=== PATIENT | male | born 1995 | race Caucasian/White ===

== ENCOUNTER 2019-06-16 09:52 | Emergency (ER) | payer SELFPAY ==
[2019-06-16] MEDS ORDERED: CEFTRIAXONE INJ 250 MG VIAL IM ONE (12:20)
[2019-06-16] MEDS ORDERED: AZITHROMYCIN 250 MG TABLET PO ONE (12:20)
--- NOTE | 2019-06-16 12:24 | ER Document Report ---
ED General - General Chief Complaint: Skin Problem Stated Complaint: SORE ON LIP Time Seen by Provider: 06/16/19 10:37 Primary Care Provider: HILARY CH FNP-C [COMMUNITY BASED STAFF] - Follow up in 1 week TRAVEL OUTSIDE OF THE U.S. IN LAST 30 DAYS: No - HPI Notes: 24-year-old male to the emergency department with complaints of a cold sore to his left side of the upper lip. He states that it started 2 days ago. He states he would like to be tested to see if it is a genital version of a cold sore. He does have a history of cold sores. He states that he would also like to be tested for STDs. He states that he is been having unprotected sex. He practices MSM. He denies any current symptoms such as testicular pain, penile discharge, dysuria, genital sores. He states that he is currently homeless and has been so for the past 3 nights. - Related Data Allergies/Adverse Reactions: No Known Allergies Allergy (Verified 01/18/15 11:23) Past Medical History - General Information source: Patient - Social History Smoking Status: Current Every Day Smoker Chew tobacco use (# tins/day): No Frequency of alcohol use: Occasional Drug Abuse: None Family History: Reviewed & Not Pertinent, Other - unknown Patient has suicidal ideation: No Patient has homicidal ideation: No - Immunizations Hx Diphtheria, Pertussis, Tetanus Vaccination: Yes Review of Systems - Review of Systems Constitutional: denies: Chills, Fever EENT: Other - sore to the left upper lip. denies: Ear pain, Throat pain Cardiovascular: denies: Chest pain, Palpitations, Heart racing, Syncope, Dizziness, Lightheaded Respiratory: denies: Cough, Hurts to breathe, Short of breath Gastrointestinal: denies: Abdominal pain, Diarrhea, Nausea, Vomiting Genitourinary: denies: Burning, Dysuria, Frequency, Flank pain, Hematuria, Incontinence, Urgency, Retention Male Genitourinary: denies: Erectile dysfunction, Testicular pain, Penile discharge Musculoskeletal: No symptoms reported Skin: No symptoms reported Neurological/Psychological: No symptoms reported -: Yes All other systems reviewed and negative Physical Exam - Vital signs Vitals: Temp Pulse Resp BP Pulse Ox 98.0 F 95 14 110/78 97 06/16/19 09:57 06/16/19 09:57 06/16/19 09:57 06/16/19 09:57 06/16/19 09:57 Interpretation: Normal - General General appearance: Appears well, Alert - HEENT Head: Normocephalic, Atraumatic Eyes: Normal Pupils: PERRL Ears: Normal External canal: Normal Tympanic membrane: Normal Sinus: Normal Nasal: Normal Mouth/Lips: Other - there is a small vesicular round ulceration to the top left lip. 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 Pharynx: Normal. No: Potential airway comprom. Neck: Normal, Supple. No: Lymphadenopathy, Meningismus - Respiratory Respiratory status: No respiratory distress Chest status: Nontender Breath sounds: Normal Chest palpation: Normal - Cardiovascular Rhythm: Regular Heart sounds: Normal auscultation Murmur: No - Abdominal Inspection: Normal Distension: No distension Bowel sounds: Normal Tenderness: Nontender Organomegaly: No organomegaly - Neurological Neuro grossly intact: Yes Cognition: Normal Orientation: AAOx4 Kuldeep Coma Scale Eye Opening: Spontaneous Kuldeep Coma Scale Verbal: Oriented Kuldeep Coma Scale Motor: Obeys Commands Kuldeep Coma Scale Total: 15 Speech: Normal Cranial nerves: Normal Cerebellar coordination: Normal Motor strength normal: LUE, RUE, LLE, RLE Additional motor exam normals: Equal beater tender. No: Pronator drift Sensory: Normal - Psychological Associated symptoms: Normal affect, Normal mood - Skin Skin Temperature: Warm Skin Moisture: Dry Skin Color: Normal Course - Re-evaluation Re-evalutation: Impression: Cold sore to the lip. Patient also would like empiric treatment for GC and Chlamydia. Will give while awaiting results. Patient denies any symptoms. Will send to health department for HIV testing. Patient agrees with the plan. - Vital Signs Vital signs: Temp Pulse Resp BP Pulse Ox 97.8 F 92 16 112/84 98 06/16/19 13:06 06/16/19 13:06 06/16/19 13:06 06/16/19 13:06 06/16/19 13:06 Discharge - Discharge Clinical Impression: Cold sore, Screening for STDs (sexually transmitted diseases) Condition: Stable Disposition: HOME, SELF-CARE Additional Instructions: Use topical medicine for relief of cold sore. Follow up with the health department for HIV testing. Use protection during sex. [facility] [place] [address] [place] [id number] Prescriptions: Docosanol [Abreva] 1 applic TP ASDIR PRN #2 cream.gm. PRN Reason: Referrals: HILARY CH FNP-C [COMMUNITY BASED STAFF] - Follow up in 1 week
[2019-06-16] MEDS ORDERED: LIDOCAINE 1% INJ (10 MG/ML) 10 ML MDV ONE (12:29)
[2019-06-16 12:43] LABS: CHLAM PCR NOT DETECTED (NOT DETECT)
[2019-06-16 13:16] VITALS: BP 112/84
== END 2019-06-16 13:08 | disposition home or self-care (01) ==
LOC: ER 09:52
DX: B00.1 Herpesviral vesicular dermatitis (principal); Z59.0 Homelessness; Z20.2 Contact with and (suspected) exposure to infections with a predominantly sexual mode of transmission; F17.200 Nicotine dependence, unspecified, uncomplicated
CPT/HCPCS: 99283; 96372; 87250; 87491; 87591; J0696

== ENCOUNTER 2019-08-12 12:57 | Emergency (ER) | payer SELFPAY ==
[2019-08-12 13:08] VITALS: BP 117/72
[2019-08-12] MEDS ORDERED: IBUPROFEN 800 MG TABLET PO ONE (13:43)
--- NOTE | 2019-08-12 13:45 | ER Document Report ---
ED ENT - General Chief Complaint: Cold Symptoms Stated Complaint: COUGH/SORE THROAT/VOMITING Time Seen by Provider: 08/12/19 13:36 Mode of Arrival: Ambulatory Information source: Patient Notes: 24-year-old male presented to ED for complaint of sore throat dental pain cough and congestion. He states he is homeless living on the [address] and is not able to afford any antibiotics on the street or any Tylenol or Motrin. TRAVEL OUTSIDE OF THE [place].S. IN LAST 30 DAYS: No - HPI Patient complains to provider of: Dental problem, Nose problem, Throat problem Onset: Last week Onset/Duration: Gradual Quality of pain: Achy, Sharp Severity: Moderate Pain Level: 4 Context: Recent Illness Location of pain: Ears, Nose, Sinus, Throat, Tooth Teeth: 1 - Cavities throughout his mouth. Poor dentition Associated symptoms: Chills, Congestion, Cough, Dental pain, Dental caries, Runny nose, Sinus pain, Sinus drainage, Sore throat Similar symptoms previously: Yes Recently seen / treated by doctor: Yes - Related Data Allergies/Adverse Reactions: No Known Allergies Allergy (Verified 01/18/15 11:23) Past Medical History - General Information source: Patient - Social History Smoking Status: Current Every Day Smoker - Smokes a pipe Smoking Education Provided: Yes - 4 minutes Frequency of alcohol use: None Drug Abuse: None Lives with: Homeless Family History: Reviewed & Not Pertinent, Other - unknown Patient has suicidal ideation: No Patient has homicidal ideation: No - Medical History Medical History: Negative Pulmonary Medical History: Reports: None EENT Medical History: Reports: None Neurological Medical History: Reports: None Endocrine Medical History: Reports: None Renal/ Medical History: Reports: None Malignancy Medical History: Reports None GI Medical History: Reports: None Musculoskeletal Medical History: Reports None Skin Medical History: Reports None Psychiatric Medical History: Reports: None Traumatic Medical History: Reports: None Infectious Medical History: Reports: None - Immunizations Hx Diphtheria, Pertussis, Tetanus Vaccination: Yes Review of Systems - Review of Systems Constitutional: Chills, Recent illness EENT: Nose congestion, Nose discharge, Sinus pressure, Sinus discharge, Throat pain, Dental problem Cardiovascular: No symptoms reported Respiratory: Cough, Sputum Gastrointestinal: No symptoms reported Genitourinary: No symptoms reported Male Genitourinary: No symptoms reported Musculoskeletal: No symptoms reported Skin: No symptoms reported Hematologic/Lymphatic: No symptoms reported Neurological/Psychological: No symptoms reported -: Yes All other systems reviewed and negative Physical Exam - Vital signs Vitals: Temp Pulse Resp BP Pulse Ox 98.4 F 104 H 22 H 117/72 97 08/12/19 13:07 08/12/19 13:07 08/12/19 13:07 08/12/19 13:07 08/12/19 13:07 Interpretation: Normal - General General appearance: Appears well, Alert - HEENT Head: Normocephalic, Atraumatic Eyes: Normal Pupils: PERRL Ears: Normal External canal: Normal Tympanic membrane: Normal Sinus: Normal Nasal: Purulent discharge Mouth/Lips: Caries Mucous membranes: Normal Teeth diagram: 1 - Multiple cavities poor dentition multiple painful teeth Pharynx: Erythema, Post nasal drainage Neck: Normal - Respiratory Respiratory status: No respiratory distress Chest status: Nontender Breath sounds: Normal, Productive cough. No: Rales, Rhonchi, Stridor, Wheezing Chest palpation: Normal - Cardiovascular Rhythm: Regular Heart sounds: Normal auscultation Murmur: No - Abdominal Inspection: Normal Distension: No distension Bowel sounds: Normal Tenderness: Nontender Organomegaly: No organomegaly - Back Back: Normal, Nontender - Extremities General upper extremity: Normal inspection, Nontender, Normal color, Normal ROM, Normal temperature General lower extremity: Normal inspection, Nontender, Normal color, Normal ROM, Normal temperature, Normal weight bearing. No: Sana's sign - Neurological Neuro grossly intact: Yes Cognition: Normal Orientation: AAOx4 Kuldeep Coma Scale Eye Opening: Spontaneous Kuldeep Coma Scale Verbal: Oriented [place] Coma Scale Motor: Obeys Commands Kuldeep Coma Scale Total: 15 Speech: Normal Motor strength normal: LUE, RUE, LLE, RLE Sensory: Normal - Psychological Associated symptoms: Normal affect, Normal mood - Skin Skin Temperature: Warm Skin Moisture: Dry Skin Color: Normal Course - Re-evaluation Re-evalutation: 08/12/19 15:11 Presentation is most consistent with likely an infected tooth. Airway is patent. Vitals within normal limits. Patient is able swallow without any difficulty. There is no significant facial swelling. No evidence of Bladimir angina, apical abscess, or airway obstruction. Patient will be started on antibiotics. I've instructed to follow-up with dentistry as earliest ability for definitive management. At this time will discharge with return precautions and follow-up recommendations. Verbal discharge instructions given a the bedside and opportunity for questions given. Medication warnings reviewed. Patient is in agreement with this plan and has verbalized understanding of return precautions and the need for primary care follow-up in the next 24-72 hours. - Vital Signs Vital signs: Temp Pulse Resp BP Pulse Ox 98.4 F 104 H 22 H 117/72 97 08/12/19 14:50 08/12/19 14:50 08/12/19 14:50 08/12/19 14:50 08/12/19 14:50 Discharge - Discharge Clinical Impression: Pain due to dental caries URI (upper respiratory infection) Qualifiers: URI type: unspecified viral URI Qualified Code(s): J06.9 - Acute upper respiratory infection, unspecified Condition: Stable Disposition: HOME, SELF-CARE Additional Instructions: UPPER RESPIRATORY ILLNESS: You have a viral infection of the respiratory passages -- a "cold." This common infection causes nasal congestion, drainage, and often sore throat and cough. It is highly contagious. The disease usually lasts about 10 to 14 days. There is no "cure" for the viral infection -- it must run its course. If there is a complication, such as bacterial infection in the nose, sinuses, middle ear, or bronchial tubes, antibiotics may be required. The antibiotics won't affect the virus. Drink plenty of fluids. A humidifier may help. An expectorant medication or decongestant may make you more comfortable. Use acetaminophen or ibuprofen for fever or aches. See the doctor if fever persists over two days, if there is any significant worsening of your symptoms, or if you simply fail to improve as expected. TOOTHACHE: Your pain is due to dental decay. The tooth must be repaired in order for you to feel better. You will, therefore, be referred to a dentist. We do not have dentists on the staff at [facility]. Severe swelling or drainage around a tooth usually means a dental abscess. This also requires evaluation and treatment by the dentist, but antibiotics may be prescribed while awaiting dental treatment. You should be rechecked immediately if you develop major swelling of the face, increasing pain, a lump in the jaw or gums, headache, difficulty swallowing, or fever. PENICILLIN V K: You have been given a prescription for Penicillin VK. Your physician has determined that this is the best antibiotic for your condition. Pen VK can be taken with meals, however more of the antibiotic gets into the bloodstream if it's taken on an empty stomach. Penicillin usually has no side effects. However, allergy to penicillins is common. If you have had an allergic reaction to any drug of the penicillin family, you should never take any other penicillin. Notify your doctor at once if you develop hives, itching, swelling, faintness, or shortness of breath. COUGH-SUPPRESSANT & EXPECTORANT MEDICATION: You are to use a cough medication as needed for relief of symptoms. This medicine is a combination of an expectorant (to make the mucous thinner and more easily "coughed up") and a cough suppressant (to reduce the frequency of coughing). The cough-suppressant medicine is related to narcotics. You may experience mild nausea and sleepiness. Some patients who are very sensitive to narcotics may have stomach pain from this medicine. Taking the medicine with food reduces these side effects. Do not drive or work with machinery until you know how this medicine affects you. The expectorant should have no side effects. Iodine-containing expectorants (such as organidin) should not be taken by persons with active thyroid disease unless approved by your doctor. Call the doctor if you develop shortness of breath, hives, rash, itching, lightheadedness, or severe nausea and vomiting. USE OF ACETAMINOPHEN (Tylenol): Acetaminophen may be taken for pain relief or fever control. It's much safer than aspirin, offering a wider range of "safe" dosages. It is safe during . Some brand names are Tylenol, Panadol, Datril, Anacin 3, Tempra, and Liquiprin. Acetaminophen can be repeated every four hours. The following are maximum recommended dosages: >89 pounds or adults 650 mg to 900 mg Acetaminophen can be repeated every four hours. Maximum dose not to exceed 4000 mg a day. SMOKING: If you smoke, you should stop smoking. The tar and chemicals in cigarette smoke are harmful. Smoking has been shown to cause: emphysema chronic bronchitis lung cancer mouth and throat cancer stomach and pancreas cancer premature aging defects In addition, smoking increases ear and lung infections in children of smokers. Follow-up. you have been referred for follow-up care to the dentists listed below. Call the dentists office for an appointment as you were instructed or within the next two days. If you experience worsening or a significant change in your symptoms, notify the physician immediately or return to the Emergency Department at any time for re-evaluation. [facility] [address] [place] [address] [facility] [place] [address] [facility] [address] [facility] ([facility] [address] [facility] [email or web address] [address] [place] [address] Thursday- 8:00am to 5:00 pm Will see patients from other [facility]. Charges based on income and family size and accepts Medicare, Medicaid, and Insurances Will pull molars [facility] [address] Hours of Operation 8:00 am - 4:30 pm weekdays The following dental offices accept Medicaid: [facility] Dr. Gallardo Dr. Kulkarni Dr. Garcia Dr. Edward Kobe Gandhi, David, and Jose oral surgery Dr. Maya ([place]) Dr. Méndez ([place]) [facility] Drs. Singh and Henok ([place]) Dr. Chavez ([place]) [facility] Dr. Jaffe ([place]) Drs. Chacon and ([place]) Medicaid Care Line Prescriptions: Penicillin V Potassium [Penicillin Vk 500 mg Tablet] 500 mg PO BID #20 tablet Forms: Smoking Cessation Education
== END 2019-08-12 14:50 | disposition home or self-care (01) ==
LOC: ER 12:57
DX: K02.9 Dental caries, unspecified (principal); J02.9 Acute pharyngitis, unspecified; R05 Cough; R11.10 Vomiting, unspecified; Z59.0 Homelessness; F17.290 Nicotine dependence, other tobacco product, uncomplicated
CPT/HCPCS: 87070; 87880; 99283

== ENCOUNTER 2019-09-24 14:11 | Emergency (ER) | payer MEDICAID ==
--- NOTE | 2019-09-24 14:20 | ER Document Report ---
ED Medical Screen (RME) - General Chief Complaint: Rectal Bleeding Stated Complaint: BUTTOCK PAIN Time Seen by Provider: 09/24/19 14:13 TRAVEL OUTSIDE OF THE U.S. IN LAST 30 DAYS: No - HPI Notes: 09/24/19 14:17 Patient is a 24-year-old male with no significant past medical history presents complaining of generalized weakness for the past couple days as well as having "green pus" discharge from his anus and redness and swelling to the area as well. Patient states that he did meet another male a few days ago and the other male reportedly did not "go slow" and "shoved it right in." Patient states that he did feel some pain at that time, but did not feel any pain thereafter. He started developing the drainage, redness, and pain over the past couple days. No fever. No vomiting. He is urinating normally. I have treated and performed a rapid initial assessment of this patient. A comprehensive ED assessment and evaluation of the patient, analysis of test results and completion of medical decision making process will be conducted by additional ED providers. PHYSICAL EXAMINATION: GENERAL: Well-appearing, well-nourished and in no acute distress. A&Ox4. Answers questions appropriately. - Related Data Allergies/Adverse Reactions: No Known Allergies Allergy (Verified 01/18/15 11:23) Past Medical History - Immunizations Hx Diphtheria, Pertussis, Tetanus Vaccination: Yes Physical Exam - Vital signs Vitals: Temp Pulse Resp BP Pulse Ox 97.6 F 81 20 120/86 H 99 09/24/19 14:16 09/24/19 14:16 09/24/19 14:16 09/24/19 14:16 09/24/19 14:16 Course - Vital Signs Vital signs: Temp Pulse Resp BP Pulse Ox 97.6 F 81 20 120/86 H 99 09/24/19 14:16 09/24/19 14:16 09/24/19 14:16 09/24/19 14:16 09/24/19 14:16
[2019-09-24 14:50] LABS: APPEARANCE,URINE CLEAR; BILIRUBIN,URINE NEGATIVE (NEGATIVE); COLOR,URINE YELLOW; GLUCOSE, URINE NEGATIVE (NEGATIVE); KETONES,URINE NEGATIVE (NEGATIVE); PROTEIN,URINE NEGATIVE (NEGATIVE); URINE SPECIFIC GRAVITY 1.019
[2019-09-24 15:01] LABS: ABSOLUTE EOSINOPHILS # (AUTO) 0.1 10^3/uL (0.0-0.6); ABSOLUTE LYMPHOCYTES (AUTO) 2.7 10^3/uL (0.5-4.7); ABSOLUTE MONOCYTES (AUTO) 0.8 10^3/uL (0.1-1.4); ABSOLUTE NEUT (AUTO) 2.9 10^3/uL (1.7-8.2); BASOPHILS % (AUTO) 0.3 % (0-2); HEMOGLOBIN 14.4 g/dL (13.5-17.0); LYMPHOCYTES % (AUTO) 41.5 % (13-45); MEAN CORPUSCULAR HEMOGLOBIN 29.2 pg (27.0-33.4); MEAN CORPUSCULAR HGB CONC 35.1 g/dL (32.0-36.0); MEAN CORPUSCULAR VOLUME 83 fl (80-97); MONOCYTES % (AUTO) 11.7 % (3-13); PLATELET COUNT 319 10^3/uL (150-450); RED BLOOD COUNT 4.94 10^6/uL (4.35-5.55); RED CELL DISTRIBUTION WIDTH 14.1 % (11.5-14.0); SEGMENTED NEUTROPHILS % (AUTO) 44.5 % (42-78); TOTAL CELLS COUNTED % (AUTO) 100 %; WHITE BLOOD COUNT 6.5 10^3/uL (4.0-10.5)
[2019-09-24 15:05] LABS: ALBUMIN 4.1 g/dL (3.5-5.0); ALKALINE PHOSPHATASE 55 U/L (38-126); ANION GAP 8 (5-19); ASPARTATE AMINO TRANSFERASE 25 U/L (17-59); BILIRUBIN,DIRECT 0.2 mg/dL (0.0-0.4); BILIRUBIN,TOTAL 0.6 mg/dL (0.2-1.3); BLOOD UREA NITROGEN 15 mg/dL (7-20); CALCIUM 9.7 mg/dL (8.4-10.2); CARBON DIOXIDE 28 mmol/L (22-30); CHLORIDE 104 mmol/L (98-107); GLUCOSE 95 mg/dL (75-110); TOTAL PROTEIN 6.9 g/dL (6.3-8.2)
[2019-09-24] MEDS ORDERED: DIBUCAINE 1% OINTMENT 28 GM TP ONE (16:16)
[2019-09-24] MEDS ORDERED: CEFTRIAXONE INJ 250 MG VIAL IM ONE (16:17)
[2019-09-24] MEDS ORDERED: AZITHROMYCIN 250 MG TABLET PO ONE (16:18)
[2019-09-24] MEDS ORDERED: LIDOCAINE 1% INJ-PF (10 MG/ML) 30 ML SDV ONE (17:13)
--- NOTE | 2019-09-24 17:48 | ER Document Report ---
ED GI/ - General Chief Complaint: Rectal Pain Stated Complaint: BUTTOCK PAIN Time Seen by Provider: 09/24/19 14:13 Information source: Patient Notes: 24-year-old male presents to the emergency department with a complaint of rectal pain. States that he had rectal intercourse 4 days ago and had pain in his rectal area afterwards. He notes that the interaction was rough and now he notes pain with sitting and a yellowish discharge from the rectal area. He denies fever, abdominal pain, throat pain, or penile discharge or pain. TRAVEL OUTSIDE OF THE [place]. IN LAST 30 DAYS: No - Related Data Allergies/Adverse Reactions: No Known Allergies Allergy (Verified 01/18/15 11:23) Past Medical History - Social History Smoking Status: Current Every Day Smoker Frequency of alcohol use: Social Drug Abuse: None Family History: Reviewed & Not Pertinent, Other - unknown Patient has suicidal ideation: No Patient has homicidal ideation: No Psychiatric Medical History: Reports: Hx Bipolar Disorder - Immunizations Hx Diphtheria, Pertussis, Tetanus Vaccination: Yes Review of Systems - Review of Systems Notes: Constitutional: Negative for fever. HENT: Negative for sore throat. Eyes: Negative for visual changes. Cardiovascular: Negative for chest pain. Respiratory: Negative for shortness of breath. Gastrointestinal: + Rectal pain, + rectal discharge. Genitourinary: Negative for dysuria. Musculoskeletal: Negative for back pain. Skin: Negative for rash. Neurological: Negative for headaches, weakness or numbness. 10 point ROS negative except as marked above and in HPI. Physical Exam - Vital signs Vitals: Temp Pulse Resp BP Pulse Ox 97.6 F 81 20 120/86 H 99 09/24/19 14:16 09/24/19 14:16 09/24/19 14:16 09/24/19 14:16 09/24/19 14:16 PHYSICAL EXAMINATION: Physical Exam: General: Well-nourished well-developed in no acute distress HEENT: NC/AT, pupils equal round and reactive to light, MM moist,nares clear, Neck: supple, no adenopathy, no masses. Lungs: clear, no wheezing, no rales no rhonchi CVS: Regular rate and rhythm no murmur gallop or rub Abdomen: Soft active nontender, no masses, no hepatosplenomegaly Ext: No edema clubbing or cyanosis. GI: Rectal: Tenderness in the posterior aspect of the rectum and small mucosal tear in the lateral aspect of the rectum. No swelling Neuro: Alert and responsive, moving all 4 extremities on command, cranial nerves intact. Skin: Intact no open lesions, no rash PSYCH: Normal mood, normal affect. Course - Re-evaluation Re-evalutation: 09/24/19 17:47 I will give the patient Nupercainal topical ointment, he is given Rocephin and Zithromax for possible chlamydia/gonorrhea I have asked him to follow-up with the health department or primary provider if he has ongoing complaints or symptoms. Patient is aware of this plan and is agreeable. - Vital Signs Vital signs: Temp Pulse Resp BP Pulse Ox 97.6 F 81 20 120/86 H 99 09/24/19 14:16 09/24/19 14:16 09/24/19 14:16 09/24/19 14:16 09/24/19 14:16 - Laboratory Result Diagrams: 09/24/19 14:22 09/24/19 14:22 Laboratory results interpreted by me: 09/24/19 09/24/19 14:21 14:22 RDW 14.1 H Urine Urobilinogen 2.0 H Discharge - Discharge Clinical Impression: Rectal pain, Concern about STD in male without diagnosis Condition: Good Disposition: HOME, SELF-CARE Additional Instructions: You were treated for possible STD in the emergency department today, use the Nupercainal ointment to the area of pain, may use Tylenol or ibuprofen to decrease the pain. Please follow-up with the health department or primary care physician if your symptoms are not improving or if you need further evaluation and treatment. If you develop fever, abdominal pain, or increasing rectal discharge to return to the emergency department.
[2019-09-24 18:06] VITALS: BP 118/65
== END 2019-09-24 18:06 | disposition home or self-care (01) ==
LOC: ER 14:11
DX: K62.89 Other specified diseases of anus and rectum (principal); Z20.2 Contact with and (suspected) exposure to infections with a predominantly sexual mode of transmission; F17.200 Nicotine dependence, unspecified, uncomplicated
CPT/HCPCS: 99283; 96372; 87491; 87591; 36415; 85025; 80053; 81001; Q0144; J3490; J0696

== ENCOUNTER 2020-05-09 12:07 | Emergency (ER) | payer MEDICAID ==
[2020-05-09 12:16] VITALS: BP 110/78
[2020-05-09] MEDS ORDERED: LIDOCAINE 5% OINTMENT 35.44 GM TP ONE (12:39)
--- NOTE | 2020-05-09 12:43 | ER Document Report ---
HPI - HPI Time Seen by Provider: 05/09/20 12:30 Pain Level: 3 Notes: 25-year-old male patient with history of bipolar disorder presenting with complaints of blisters to the bottom of his left foot. He states he has been walking a lot. He does report that he gets recurrent blisters. He denies any fever, chills, nausea, vomiting or any other symptoms. He reports he is starting a new job in a few days and wants to see if he needs any treatment for this. He has not tried any sxeg-zbr-sohmsyv medications or home remedies. - ROS Systems Reviewed and Negative: Yes All other systems reviewed and negative - REPRODUCTIVE Reproductive: DENIES: : - DERM Skin Problems: Blister - Plantar surface left foot Past Medical History - General Information source: Patient - Social History Smoking Status: Current Every Day Smoker Chew tobacco use (# tins/day): No Frequency of alcohol use: None Drug Abuse: None Family History: Reviewed & Not Pertinent, Other - unknown Patient has homicidal ideation: No Psychiatric Medical History: Reports: Hx Bipolar Disorder Surgical Hx: Negative - Immunizations Hx Diphtheria, Pertussis, Tetanus Vaccination: Yes Vertical Provider Document - CONSTITUTIONAL Notes: PHYSICAL EXAMINATION: GENERAL: Well-appearing, well-nourished and in no acute distress. HEAD: Atraumatic, normocephalic. EYES: Pupils equal round extraocular movements intact, conjunctiva are normal. ENT: Nares patent NECK: Normal range of motion LUNGS: No respiratory distress Musculoskeletal: Normal range of motion NEUROLOGICAL: Normal speech, normal gait. PSYCH: Normal mood, normal affect. SKIN: 2 blisters noted to plantar surface of left foot. - INFECTION CONTROL TRAVEL OUTSIDE OF THE [place] IN LAST 30 DAYS: No Course - Re-evaluation Re-evalutation: Patient disheveled but appears nontoxic. He is complaining of pain to the blister on the bottom of his left foot. We will send him home with some crutches, he was instructed to soak the foot in Epsom salt. We also gave him some topical lidocaine to see if this would help with the pain. Patient agreeable to treatment plan. - Vital Signs Vital signs: Temp Pulse Resp BP Pulse Ox 98.0 F 87 18 110/78 98 05/09/20 12:14 05/09/20 12:14 05/09/20 12:14 05/09/20 12:14 05/09/20 12:14 Discharge - Discharge Clinical Impression: Blister of foot Qualifiers: Encounter type: initial encounter Laterality: left Qualified Code(s): S90.822A - Blister (nonthermal), left foot, initial encounter Condition: Stable Disposition: HOME, SELF-CARE Additional Instructions: Please soak your foot in Epson salt and hot water. Use the lidocaine cream to help with the pain. Return to the emergency department if the area becomes hot, red or has any foul-smelling drainage
== END 2020-05-09 12:57 | disposition home or self-care (01) ==
LOC: ER 12:07
DX: S90.822A Blister (nonthermal), left foot, initial encounter (principal); X58.XXXA Exposure to other specified factors, initial encounter; F17.200 Nicotine dependence, unspecified, uncomplicated
CPT/HCPCS: 99282; J3490

== ENCOUNTER 2020-05-17 20:18 | Emergency (ER) | payer MEDICAID ==
--- NOTE | 2020-05-17 22:32 | ER Document Report ---
ED Medical Screen (RME) - General Chief Complaint: Rectal Bleeding Stated Complaint: VOMITING/RECTAL BLEEDING/DIARRHEA Notes: 25-year-old male with past medical history of bipolar depression and constipation presenting today with rectal bleeding today. He has also had 2 episodes of vomiting 1 yesterday and 1 today. No nausea, no abdominal pain. Straining to use the bathroom. Has had 5 hard bowel movements today each time he has noticed bright red blood after wiping. Is supposed to be on MiraLAX but is not taking it. Takes BuSpar and Seroquel. He denies any history of hemorrhoids and denies any additional family medical history. No fevers, chills or additional symptoms at this time. Physical exam: Patient alert, oriented, in no acute distress. I have greeted and performed a rapid initial assessment of this patient. A comprehesive ED assessment and evaluation of this patient, analysis of test results and completion of the medical decision-making process will be conducted by additional ED providers. TRAVEL OUTSIDE OF THE [place] IN LAST 30 DAYS: No - Related Data Allergies/Adverse Reactions: No Known Allergies Allergy (Verified 05/17/20 22:19) Home Medications: SEREQUEL. BUSPARE Past Medical History - Social History Frequency of alcohol use: Social Drug Abuse: None Psychiatric Medical History: Reports: Hx Bipolar Disorder, Hx Depression - Immunizations Hx Diphtheria, Pertussis, Tetanus Vaccination: Yes
== END 2020-05-17 23:48 | disposition left against medical advice (07) ==
LOC: ER 20:18
DX: K62.5 Hemorrhage of anus and rectum (principal); K59.00 Constipation, unspecified; R19.7 Diarrhea, unspecified
CPT/HCPCS: 99281

== ENCOUNTER 2020-05-19 15:06 | Emergency (ER) | payer MEDICAID ==
[2020-05-19 15:11] VITALS: BP 112/73
--- NOTE | 2020-05-19 15:32 | ER Document Report ---
ED Medical Screen (RME) - General Chief Complaint: Constipation Stated Complaint: CONSTIPATION Time Seen by Provider: 05/19/20 15:29 Mode of Arrival: Ambulatory Information source: Patient Notes: Patient presents complaining of constipation with lower abdominal pain. Patient states that he has had small hard bowel movements periodically and passes blood in his stool. Patient is uncertain if he may have hemorrhoids. Patient denies any fever. Patient states that he did have vomiting a few days ago but none today. Patient states he is homeless and is asking for something to eat as well . Patient feels that his psychiatric medications may be causing his symptoms. I have greeted and performed a rapid initial assessment of this patient. A comprehensive ED assessment and evaluation of the patient, analysis of test results and completion of the medical decision making process will be conducted by additional ED providers. TRAVEL OUTSIDE OF THE [place] IN LAST 30 DAYS: No - Related Data Allergies/Adverse Reactions: No Known Allergies Allergy (Verified 05/19/20 15:30) Past Medical History Psychiatric Medical History: Reports: Hx Bipolar Disorder, Hx Depression - Immunizations Hx Diphtheria, Pertussis, Tetanus Vaccination: Yes Physical Exam - Vital signs Vitals: Temp Pulse Resp BP Pulse Ox 98.5 F 52 L 18 112/73 95 05/19/20 15:05/19/20 15:05/19/20 15:05/19/20 15:05/19/20 15:09 - General General appearance: Appears well, Alert In distress: None - Abdominal Tenderness: Tender - Lower abdomen Course - Vital Signs Vital signs: Temp Pulse Resp BP Pulse Ox 98.5 F 52 L 18 112/73 95 05/19/20 15:05/19/20 15:05/19/20 15:05/19/20 15:05/19/20 15:09
[2020-05-19 15:49] LABS: ABSOLUTE BASOPHILS # (AUTO) 0.1 10^3/uL (0.0-0.2); ABSOLUTE EOSINOPHILS # (AUTO) 0.3 10^3/uL (0.0-0.6); ABSOLUTE LYMPHOCYTES (AUTO) 2.5 10^3/uL (0.5-4.7); ABSOLUTE MONOCYTES (AUTO) 0.8 10^3/uL (0.1-1.4); ABSOLUTE NEUT (AUTO) 5.4 10^3/uL (1.7-8.2); BASOPHILS % (AUTO) 0.8 % (0-2); EOSINOPHILS % (AUTO) 3.1 % (0-6); HEMATOCRIT 44.1 % (37.9-51.0); MEAN CORPUSCULAR HEMOGLOBIN 30.7 pg (27.0-33.4); MEAN CORPUSCULAR HGB CONC 36.2 g/dL (32.0-36.0); MEAN CORPUSCULAR VOLUME 85 fl (80-97); MONOCYTES % (AUTO) 9.1 % (3-13); PLATELET COUNT 289 10^3/uL (150-450); RED CELL DISTRIBUTION WIDTH 13.3 % (11.5-14.0); TOTAL CELLS COUNTED % (AUTO) 100 %; WHITE BLOOD COUNT 9.1 10^3/uL (4.0-10.5)
[2020-05-19 15:53] LABS: APPEARANCE,URINE SLIGHTLY-CLOUDY; BILIRUBIN,URINE NEGATIVE (NEGATIVE); COLOR,URINE AMBER; GLUCOSE, URINE NEGATIVE (NEGATIVE); KETONES,URINE NEGATIVE (NEGATIVE); LEUKOCYTE ESTERASE,URINE NEGATIVE (NEGATIVE); NITRITE,URINE NEGATIVE (NEGATIVE); PROTEIN,URINE 100 mg/dL (NEGATIVE); URINE SPECIFIC GRAVITY 1.024
[2020-05-19 16:15] LABS: ALBUMIN 4.5 g/dL (3.5-5.0); ALKALINE PHOSPHATASE 55 U/L (38-126); ANION GAP 7 (5-19); ASPARTATE AMINO TRANSFERASE 18 U/L (17-59); BILIRUBIN,DIRECT 0.2 mg/dL (0.0-0.4); BILIRUBIN,TOTAL 0.8 mg/dL (0.2-1.3); BLOOD UREA NITROGEN 11 mg/dL (7-20); CALCIUM 9.5 mg/dL (8.4-10.2); CARBON DIOXIDE 29 mmol/L (22-30); CHLORIDE 105 mmol/L (98-107); GLUCOSE 112 mg/dL (75-110); POTASSIUM 3.6 mmol/L (3.6-5.0)
--- NOTE | 2020-05-19 16:15 | ER Document Report ---
ED General - General Chief Complaint: Constipation Stated Complaint: CONSTIPATION Time Seen by Provider: 05/19/20 15:29 Primary Care Provider: KOLTON BERNARDO MD [ACTIVE STAFF] - Follow up as needed Mode of Arrival: Ambulatory TRAVEL OUTSIDE OF THE [place] IN LAST 30 DAYS: No - HPI Notes: 25-year-old male presents to the emergency room with complaints of having constipation and states he had small, hard bowel movements last one was this morning, thinks that there may have been some josé miguel, bright red blood from straining. Patient states that he vomited 2 days ago but has been holding down fluids and eating intermittently. Patient reports that he is homeless. Patient states his last bowel movement was this morning and states that he feels like he has to go as well. Has not tried any mtkf-mpy-fofpoiu laxatives or stool softeners. Has not tried a high-fiber diet. patient is unsure if he does have any hemorrhoids. Patient states he has not been sexually active in the last 3 months, states his last partner was a virgin. patient states that he knows he feels be taken MiraLAX but cannot afford it. Denies fevers, chills, chest pain,palpitations, shortness of breath, dyspnea, nausea, vomiting, diarrhea, abdominal pain, hematuria,blurred vision, double vision, loss of vision, speech changes, LH, dizziness, syncope, headaches, wheezing, ST, URI, neck pain, weakness, bowel or bladder dysfunction, saddle anesthesia, numbness or tingling in bilateral upper or lower extremities equally, muscle paralysis, weakness in bilateral upper or lower extremities equally or rash. Denies IV drug use. MEDICATIONS: I agree with the patient medications as charted by the RN. ALLERGIES: I agree with the allergies as charted by the RN. PAST MEDICAL HISTORY/PAST SURGICAL HISTORY: Reviewed and agree as charted by RN. SOCIAL HISTORY: Reviewed and agree as charted by RN. FAMILY HISTORY: No significant familial comorbid conditions directly related to patient complaint EXAM: Reviewed vital signs as charted by RN. REVIEW OF SYSTEMS:reviewed vital signs by RN CONSTITUTIONAL : Denies fever, chills, or sweats. Denies recent illness. EENT: Denies eye, ear, throat, or mouth pain or symptoms. Denies nasal or sinus congestion or discharge. Denies throat, tongue, or mouth swelling or difficulty swallowing. CARDIOVASCULAR: Denies chest pain. Denies palpitations or racing or irregular heart beat. Denies ankle edema. RESPIRATORY: Denies cough, cold, or chest congestion. Denies shortness of breath, difficulty breathing, or wheezing. GASTROINTESTINAL: Denies abdominal pain or distention. Denies nausea, vomiting, or diarrhea. Denies blood in vomitus, stools, or per rectum. Denies black, tarry stools. reports constipation. GENITOURINARY: Denies difficulty urinating, painful urination, burning, frequency, blood in urine, or discharge. MUSCULOSKELETAL: Denies back or neck pain or stiffness. Denies joint pain or swelling. SKIN: Denies rash, lesions or sores. HEMATOLOGIC : Denies easy bruising or bleeding. LYMPHATIC: Denies swollen, enlarged glands. NEUROLOGICAL: Denies confusion or altered mental status. Denies passing out or loss of consciousness. Denies dizziness or lightheadedness. Denies headache. Denies weakness or paralysis or loss of use of either side. Denies problems with gait or speech. Denies sensory loss, numbness, or tingling. Denies seizures. PSYCHIATRIC: Denies anxiety or stress. Denies depression, suicidal ideation, or homicidal ideation. ALL OTHER SYSTEMS REVIEWED AND NEGATIVE. Dictation was performed using [employer] voice recognition software PHYSICAL EXAMINATION: GENERAL: Well-appearing, well-nourished and in no acute distress. HEAD: Atraumatic, normocephalic. EYES: Pupils equal round and reactive to light, extraocular movements intact, sclera anicteric, conjunctiva are normal. ENT: Nares patent, oropharynx clear without exudates. Moist mucous membranes. NECK: Normal range of motion, supple without lymphadenopathy LUNGS: Breath sounds clear to auscultation bilaterally and equal. No wheezes rales or rhonchi. HEART: Regular rate and rhythm without murmurs ABDOMEN: Soft, nontender, nondistended abdomen. No guarding, no rebound. No masses appreciated. Musculoskeletal: Normal range of motion, no pitting or edema. No cyanosis. : No external hemorrhoids seen on examination. No stool in rectal vault NEUROLOGICAL: Cranial nerves grossly intact. Normal speech, normal gait. Normal sensory, motor exams PSYCH: Normal mood, normal affect. SKIN: Warm, Dry, normal turgor, no rashes or lesions noted. - Related Data Allergies/Adverse Reactions: No Known Allergies Allergy (Verified 05/19/20 15:30) Past Medical History - General Information source: Patient - Social History Smoking Status: Current Every Day Smoker Family History: Reviewed & Not Pertinent, Other - unknown Patient has homicidal ideation: No Psychiatric Medical History: Reports: Hx Bipolar Disorder, Hx Depression - Immunizations Hx Diphtheria, Pertussis, Tetanus Vaccination: Yes Physical Exam - Vital signs Vitals: Temp Pulse Resp BP Pulse Ox 98.5 F 52 L 18 112/73 95 05/19/20 15:09 05/19/20 15:09 05/19/20 15:09 05/19/20 15:05/19/20 15:09 Course - Re-evaluation Re-evalutation: 05/19/20 17:23 Afebrile vital stable no distress. Nurses notes reviewed. External examination does not show any hemorrhoids. Internal rectal exam negative for any stool in the rectal vault. Patient was able to give a stool sample. When patient gave a stool sample he noticed some green discharge on the tissue and states that he is sexually active and does have anal sex, last time was 3 months ago. Consulted with Dr. larkin, ER supervising physician stated to do a rectal wet mount and a G/C from the green particles from his rectum. When I visualized his rectum I did not see any green discharge. KUB negative for any constipation. Patient treated with azithromycin 1 g and Rocephin 250 mg IM for treatment of chlamydia and gonorrhea. Do not engage in sexual intercourse for 7-10 days after treatment. Advised that partner needs to be treated as well so you are not reinfected. Pt verbalizes that understands the risks that come with having unprotected sex. discussed safe sex, using protection. pt was tx'd for G/C at this visit. advised to have protected sex always, go to [facility] of the [facility] for further blood testing for HIV, hepatitis C, etc. Pt verbalized understanding of these instructions and agreed with plan of care. After performing a Medical Screening Examination, I estimate there is LOW risk for ACUTE APPENDICITIS, BOWEL OBSTRUCTION, ACUTE CHOLECYSTITIS, PERFORATED DIVERTICULITIS, INCARCERATED HERNIA, PANCREATITIS, TESTICULAR TORSION or PERFORATED ULCER, thus I consider the discharge disposition reasonable. Also, there is no evidence or peritonitis, sepsis, or toxicity. I have reevaluated this patient multiple times and no significant life threatening changes are noted. The patient and I have discussed the diagnosis and risks, and we agree with discharging home with close follow-up with the understanding that symptoms and presentations can change. We also discussed returning to the Emergency Department immediately if new or worsening symptoms occur. We have discussed the symptoms which are most concerning (e.g., bloody stool, fever, changing or worsening pain, intractable vomiting - standard verbal up date) that necessitate immediate return. - Vital Signs Vital signs: Temp Pulse Resp BP Pulse Ox 98.5 F 52 L 18 112/73 95 05/19/20 15:09 05/19/20 15:09 05/19/20 15:09 05/19/20 15:09 05/19/20 15:09 - Laboratory Result Diagrams: 05/19/20 15:38 05/19/20 15:38 Laboratory results interpreted by me: 05/19/20 05/19/20 05/19/20 15:38 15:38 15:38 MCHC 36.2 H Glucose 112 H Urine Protein 100 H Urine Urobilinogen 4.0 H Discharge - Discharge Clinical Impression: Constipation, Screening for STD (sexually transmitted disease) Condition: Stable Disposition: HOME, SELF-CARE Instructions: Constipation ([facility]), Laxative ([facility]) Additional Instructions: Your KUB was normal today. Your lab work was normal as well. You were screened today for chlamydia gonorrhea and trichomonas from green mucus from your rectum. This is a send out so will not be back. You reported you have been sexually active in the last 3 months. You have been treated with azithromycin 1 g and Rocephin 250 mg IM for treatment of chlamydia and gonorrhea. Do not engage in sexual intercourse for 7- 10 days after treatement. discussed safe sex, using protection. pt was tx'd for G/C at this visit. Advised to have protected sex always, go to [facility]CP of the [facility] for further blood testing for HIV, hepatitis C, etc. Return immediately for any new or worsening symptoms. Follow up with primary care provider, call tomorrow to make followup appointment. Prescriptions: Polyethylene Glycol 3350 [Miralax Powder 17 gm/Packet] 1 packet PO DAILY #1 pkg Referrals: KOLTON BERNARDO MD [ACTIVE STAFF] - Follow up as needed
[2020-05-19] MEDS ORDERED: POLYETHYLENE GLYCOL 3350 POWDER 17 GM/1 PACKET PO ONE (16:39)
--- NOTE | 2020-05-19 16:59 | RADIOLOGY REPORT (SQ) ---
EXAM DESCRIPTION: KUB/ABDOMEN (SINGLE VIEW) IMAGES COMPLETED DATE/TIME: 05/19/2020 4:51 pm REASON FOR STUDY: constipation COMPARISON: KUB 01/18/2015 NUMBER OF VIEWS: One view. TECHNIQUE: Supine radiographic image of the abdomen acquired. LIMITATIONS: None. FINDINGS: BOWEL GAS PATTERN: Normal bowel gas pattern. No dilated loops. CALCIFICATIONS: No suspicious calcifications. SOFT TISSUES: No gross mass or suggestion of organomegaly. HARDWARE: None in the abdomen. BONES: No acute fracture. No worrisome bone lesions. OTHER: No other significant finding. IMPRESSION: NO RADIOGRAPHIC EVIDENCE FOR ACUTE ABDOMINAL DISEASE. TECHNICAL DOCUMENTATION: JOB ID: [id number] 2010 [employer]- All Rights Reserved Reading location - IP/workstation name: [email or web address]
[2020-05-19] MEDS ORDERED: ONDANSETRON 4 MG TAB.RAPDIS PO ONE (17:09)
[2020-05-19] MEDS ORDERED: AZITHROMYCIN 1 GM SUSP PACKET PO ONE (18:50)
[2020-05-19] MEDS ORDERED: LIDOCAINE 1% INJ-PF (10 MG/ML) 30 ML SDV INJ ONE (18:50)
[2020-05-19] MEDS ORDERED: CEFTRIAXONE INJ 250 MG VIAL IM ONE (18:50)
== END 2020-05-19 19:03 | disposition home or self-care (01) ==
LOC: ER 15:06
DX: K59.00 Constipation, unspecified (principal); R11.10 Vomiting, unspecified; Z20.2 Contact with and (suspected) exposure to infections with a predominantly sexual mode of transmission; F17.200 Nicotine dependence, unspecified, uncomplicated
CPT/HCPCS: 99284; 96372; 87491; 87591; 36415; 83690; 85025; 80053; 81001; 74018; J3490 ×2; S0119; Q0144; J0696

== ENCOUNTER 2020-06-19 23:19 | Emergency (ER) | payer OTHER, MEDICAID ==
[2020-06-19 23:27] VITALS: BP 125/72
[2020-06-19] MEDS ORDERED: ONDANSETRON 4 MG TAB.RAPDIS PO ONE (23:30)
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
== END 2020-06-20 02:30 | disposition left against medical advice (07) ==
LOC: ER 23:19
DX: M25.521 Pain in right elbow (principal); M25.561 Pain in right knee; M25.562 Pain in left knee; R51.9 Headache, unspecified; V19.60XA Unspecified pedal cyclist injured in collision with unspecified motor vehicles in traffic accident, initial encounter; Z53.20 Procedure and treatment not carried out because of patient's decision for unspecified reasons
CPT/HCPCS: 99281; 73080; 73560; 70450; S0119

== ENCOUNTER 2020-10-01 11:26 | Emergency (ER) | payer MEDICAID ==
[2020-10-01 11:34] VITALS: BP 109/79
[2020-10-01] MEDS ORDERED: IBUPROFEN 600 MG TABLET PO ONE (12:41)
--- NOTE | 2020-10-01 12:53 | ER Document Report ---
ED General - General Chief Complaint: Hand Swelling Stated Complaint: FINGER PAIN Time Seen by Provider: 10/01/20 12:25 Primary Care Provider: [facility] [Provider Group] - Follow up as needed TRAVEL OUTSIDE OF THE [place] IN LAST 30 DAYS: No - HPI Notes: Patient is a 25-year-old male who presents with left index finger pain that began 2 days ago. Patient states he bites his nails and he had a hangnail which he put off. He now reports increased pain and is concerned about infection. He he also reports a history of chronic constipation. He states he strained during a bowel movement 5 days ago and had rectal pain. He reports of history of purulent drainage from his rectum in the past but states he has not had any in the last few days. He denies fever, chest pain, shortness of breath, abdominal pain, rectal bleeding, and vomiting. - Related Data Allergies/Adverse Reactions: No Known Allergies Allergy (Verified 06/20/20 00:57) Past Medical History - Social History Smoking Status: Current Every Day Smoker Chew tobacco use (# tins/day): No Frequency of alcohol use: Rare Drug Abuse: None Family History: Reviewed & Not Pertinent, Other - unknown Psychiatric Medical History: Reports: Hx Bipolar Disorder, Hx Depression - Immunizations Hx Diphtheria, Pertussis, Tetanus Vaccination: Yes Review of Systems - Review of Systems Constitutional: No symptoms reported EENT: No symptoms reported Cardiovascular: No symptoms reported Respiratory: No symptoms reported Gastrointestinal: See HPI Genitourinary: No symptoms reported Male Genitourinary: No symptoms reported Musculoskeletal: See HPI Skin: No symptoms reported Hematologic/Lymphatic: No symptoms reported Neurological/Psychological: No symptoms reported Physical Exam - Vital signs Vitals: Temp Pulse Resp BP Pulse Ox 98.6 F 108 H 16 109/79 97 10/01/20 11:33 10/01/20 11:33 10/01/20 11:33 10/01/20 11:33 10/01/20 11:33 - Notes Notes: PHYSICAL EXAMINATION: VITALS: Vitals reviewed and within normal limits. GENERAL: Well-appearing, well-nourished and in no acute distress. HEAD: Atraumatic, normocephalic. LUNGS: Breath sounds clear to auscultation bilaterally and equal. No wheezes rales or rhonchi. HEART: Regular rate and rhythm without murmurs. ABDOMEN: Soft, nontender, normoactive bowel sounds. No guarding, no rebound. No masses appreciated. EXTREMITIES: Left index finger appears normal with no swelling or erythema noted. Medial aspect of the finger is tender but there are no overlying skin changes. Full range of motion of the left fingers and hands. 2+ radial pulse bilaterally. Sensation grossly intact. 5/5 strength to the left upper extremity. PSYCH: Normal mood, normal affect. SKIN: Warm, Dry, normal turgor, no rashes or lesions noted. Course - Re-evaluation Re-evalutation: Patient is a 25-year-old male who presents with left index finger pain that began 2 days ago. Vital signs are stable and within normal limits. On exam, left index finger appears normal with no swelling or erythema noted. Medial aspect of the finger is tender but there are no overlying skin changes. Based on presentation and exam, I have a low clinical suspicion of infection or cellulitis. Patient offered x-ray of the left finger, however, he declined. As for the patient's chronic constipation, rectal exam was offered, however, patient changed his mind and states he will follow up with his primary care provider. Abdominal exam is unremarkable and abdomen is soft and nontender. I have a low clinical suspicion for any emergent etiology. Strict return precautions given for both his left finger and chronic constipation. Patient instructed to follow-up with primary care this week. Patient will be discharged home. Patient understands and is in agreement with the plan. - Vital Signs Vital signs: Temp Pulse Resp BP Pulse Ox 98.6 F 108 H 16 109/79 97 10/01/20 11:33 10/01/20 11:33 10/01/20 11:33 10/01/20 11:33 10/01/20 11:33 - Laboratory Results Critical Laboratory Results Reviewed: No Critical Results - Radiology Results Critical Radiology Results Reviewed: No Critical Results Discharge - Discharge Clinical Impression: Finger pain, left, Constipation, chronic Condition: Stable Disposition: HOME, SELF-CARE Additional Instructions: Follow-up with your primary care provider concerning your chronic constipation. Return to the emergency department if your symptoms worsen or if you develop worsening swelling, redness, tenderness, and warmth to her left index finger. Also return if you develop fever, persistent vomiting, chest pain, or shortness of breath. Referrals: [facility] [Provider Group] - Follow up as needed
== END 2020-10-01 12:50 | disposition home or self-care (01) ==
LOC: ER 11:26
DX: K59.09 Other constipation (principal); M79.645 Pain in left finger(s); M79.89 Other specified soft tissue disorders; F17.200 Nicotine dependence, unspecified, uncomplicated
CPT/HCPCS: 99282; J3490

== ENCOUNTER 2020-10-04 14:07 | Emergency (ER) | payer MEDICAID ==
[2020-10-04 14:12] VITALS: BP 125/82
--- NOTE | 2020-10-04 14:47 | ER Document Report ---
ED Medical Screen (RME) - General Stated Complaint: LEFT HAND FINGER PAIN Time Seen by Provider: 10/04/20 14:39 Primary Care Provider: MARCOS NAYLOR DO [Primary Care Provider] - Follow up as needed Mode of Arrival: Ambulatory Information source: Patient Notes: 25-year-old female male patient presenting to the emergency department complaints of left index finger pain and swelling. Patient reports he was seen here several days ago, told that they could not "cut it open". Patient reports it has worsened since that time. Patient very angry, agitated, cussing at the staff in triage. Patient will not allow for full examination of this digit. On visual exam there does appear to be erythema and swelling. I have greeted and performed a rapid initial assessment of this patient. A comp rehensive ED assessment and evaluation of the patient, analysis of test results and completion of the medical decision making process will be conducted by additional ED providers. I have specifically instructed the patient or family members with the patient to immediately return to any nursing staff should anything change in the patient's condition or with their chief complaint. TRAVEL OUTSIDE OF THE [place] IN LAST 30 DAYS: No - Related Data Allergies/Adverse Reactions: No Known Allergies Allergy (Verified 10/04/20 14:35) Past Medical History Psychiatric Medical History: Reports: Hx Bipolar Disorder, Hx Depression - Immunizations Hx Diphtheria, Pertussis, Tetanus Vaccination: Yes Physical Exam - Vital signs Vitals: Temp Pulse Resp BP Pulse Ox 98.4 F 113 H 16 125/82 99 10/04/20 14:10 10/04/20 14:10 10/04/20 14:10 10/04/20 14:10 10/04/20 14:10 Course - Vital Signs Vital signs: Temp Pulse Resp BP Pulse Ox 98.4 F 113 H 16 125/82 99 10/04/20 14:10 10/04/20 14:10 10/04/20 14:10 10/04/20 14:10 10/04/20 14:10 Doctor's Discharge - Discharge Referrals: MARCOS NAYLOR DO [Primary Care Provider] - Follow up as needed
[2020-10-04] MEDS ORDERED: SULFAMETHOXAZOLE/TRIMETHOPRIM 800-160 MG TABLET PO ONE (15:03)
[2020-10-04] MEDS ORDERED: CEPHALEXIN 500 MG CAPSULE PO ONE (15:03)
[2020-10-04] MEDS ORDERED: LIDOCAINE 1% INJ-PF (10 MG/ML) 30 ML SDV INJ ONE (15:03)
--- NOTE | 2020-10-04 15:19 | ER Document Report ---
ED Hand/Wrist Injury - General Chief Complaint: Finger Injury Stated Complaint: LEFT HAND FINGER PAIN Time Seen by Provider: 10/04/20 14:39 Primary Care Provider: MARCOS NAYLOR DO [Primary Care Provider] - Follow up as needed Mode of Arrival: Ambulatory Notes: HPI: 25-year-old male who presents with 3 days of pain to his left index finger. He was seen here and evaluated and found to have no obvious drainable lesion. His index finger has become more swollen and more painful. No fevers or vomiting. Patient lives at a hotel through [facility]. He does have a psychologist/psychiatrist for his ADHD and bipolar disorder. He states he is unable to afford his medications consisting of BuSpar and Seroquel. He states that they are actually at the [place] pharmacy but he does not have the money to pay for these. He does however have a cell phone at bedside. ROS: See HPI Reviewed vital signs and nursing note as charted by RN. PHYSICAL EXAM: CONSTITUTIONAL: Alert and oriented and responds appropriately to questions. Well-appearing; well-nourished EXT: Patient does have a tender fluctuant indurated area to the distal tip of his left index finger to the medial aspect consistent with an infected paronychia. I do believe that the patient will require incision and drainage after digital block of the index finger. Patient has consented to this verbally. TRAVEL OUTSIDE OF THE [place] IN LAST 30 DAYS: No - Related Data Allergies/Adverse Reactions: No Known Allergies Allergy (Verified 10/04/20 14:35) Past Medical History - General Information source: Patient - Social History Smoking Status: Current Every Day Smoker Chew tobacco use (# tins/day): No Frequency of alcohol use: Rare Drug Abuse: None Family History: Reviewed & Not Pertinent, Other - unknown Psychiatric Medical History: Reports: Hx Bipolar Disorder, Hx Depression - Immunizations Hx Diphtheria, Pertussis, Tetanus Vaccination: Yes Physical Exam - Vital signs Vitals: Temp Pulse Resp BP Pulse Ox 98.4 F 113 H 16 125/82 99 10/04/20 14:10 10/04/20 14:10 10/04/20 14:10 10/04/20 14:10 10/04/20 14:10 Course - Re-evaluation Re-evalutation: 10/04/20 15:19 Given the above history and physical I will perform a bedside I&D after a digital block. Given that the patient has been unable to afford medications and I do believe would benefit from antibiotics, I have consulted case management to help the patient with payment. Patient does have Medicaid. 10/04/20 16:23 We have had case management seen and assessed the patient. Patient has Medicaid. Patient is unwilling to pay to $3-$4 co-pay per medication. Patient still smokes cigarettes. Patient has a grandmother who is chronically on the phone with who states that she would be able to help him. It appears that the patient can go to [facility] here locally according to case management and get Bactrim tablets for free. I will prescribe these. - Vital Signs Vital signs: Temp Pulse Resp BP Pulse Ox 98.4 F 113 H 16 125/82 99 10/04/20 14:10 10/04/20 14:10 10/04/20 14:10 10/04/20 14:10 10/04/20 14:10 - Laboratory Results Critical Laboratory Results Reviewed: No Critical Results - Radiology Results Critical Radiology Results Reviewed: No Critical Results Procedures - Incision and Drainage Left Finger Type: Simple Anesthetic type: 1% Lidocaine mL's of anesthetic: 8 Blade size: 11 I&D procedure: Betadine prep applied Incision Method: Incision made by scalpel Notes: 10/04/20 16:23 Digital block performed with lidocaine without epinephrine with good anesthesia uptake Discharge - Discharge Clinical Impression: Paronychia of finger Qualifiers: Laterality: left Qualified Code(s): L03.012 - Cellulitis of left finger Condition: Good Disposition: HOME, SELF-CARE Additional Instructions: Come back immediately for any increased pain, swelling of the finger, fever or vomiting, or any other acute problems. Please refrain from biting her nails as we have discussed. Please make sure that you go to [facility] to spanish moss picker the antibiotic we have prescribed. Please go to [facility] pharmacy and pay the co-pay for your psychiatric medications. Prescriptions: Sulfamethoxazole/Trimethoprim [Bactrim Ds Tablet] 1 each PO BID #14 tablet Referrals: MARCOS NAYLOR DO [Primary Care Provider] - Follow up as needed
--- NOTE | 2020-10-04 16:11 | RADIOLOGY REPORT (SQ) ---
EXAM DESCRIPTION: FINGER LEFT IMAGES COMPLETED DATE/TIME: 10/04/2020 3:57 pm REASON FOR STUDY: swelling pain COMPARISON: None. NUMBER OF VIEWS: Three views. TECHNIQUE: AP, lateral, and oblique images acquired of the left second finger. LIMITATIONS: None. FINDINGS: MINERALIZATION: Normal. BONES: No fracture dislocation. No worrisome bone lesions. Incidental note is made of a well-healed fracture deformity of the 5th metacarpal and of the ulnar styloid. SOFT TISSUES: Soft tissue swelling is seen about the 2nd digit distal phalanx. OTHER: No other significant finding. IMPRESSION: 2nd digit distal phalanx soft tissue swelling without retained radiopaque foreign body o r underlying osseous injury. TECHNICAL DOCUMENTATION: JOB ID: [id number] 2010 [employer]- All Rights Reserved Reading location - IP/workstation name: [email or web address]
[2020-10-04] MEDS ORDERED: IBUPROFEN 800 MG TABLET PO ONE (16:33)
== END 2020-10-04 16:50 | disposition home or self-care (01) ==
LOC: ER 14:07
DX: L03.012 Cellulitis of left finger (principal); F31.9 Bipolar disorder, unspecified; F90.9 Attention-deficit hyperactivity disorder, unspecified type; T43.596A Underdosing of other antipsychotics and neuroleptics, initial encounter; Z91.120 Patient's intentional underdosing of medication regimen due to financial hardship; Z91.14 Patient's other noncompliance with medication regimen; F17.200 Nicotine dependence, unspecified, uncomplicated
CPT/HCPCS: 99283; 73140; 10060; J3490 ×3